=== PATIENT | male | born 1965 | race Caucasian/White ===

== ENCOUNTER → 2022-05-09 | Outpatient (CLI) | payer BC ==
[~2022-05-09] MED LIST: CYCL10 PO
[2022-05-09 08:06] LABS: BASOPHILS ABSOLUTE AUTO 0.06 K/mm3 (0.00-0.23); BASOPHILS PERCENT AUTO 1 % (0-2); EOSINOPHILS ABSOLUTE AUTO 0.17 K/mm3 (0.00-0.68); EOSINOPHILS PERCENT AUTO 2 % (0-6); Hemoglobin 15.4 g/dL (13.5-17.5); IMMATURE GRAN ABSOLUTE AUTO 0.05 K/mm3 (0.00-0.10); IMMATURE GRAN PERCENT AUTO 1 % (0-1); LYMPHOCYTES ABSOLUTE AUTO 2.37 K/mm3 (0.84-5.20); LYMPHOCYTES PERCENT AUTO 28 % (21-46); MONOCYTES ABSOLUTE AUTO 0.97 K/mm3 (0.16-1.47); MONOCYTES PERCENT AUTO 11 % (4-13); Mean Corpuscular HGB Conc 35.8 g/dL (31.5-36.5); Mean Corpuscular Volume 89 fL (80-100); NEUTROPHILS PERCENT AUTO 58 % (41-73); RDW Coefficient Variation 11.9 % (11.7-14.2); RDW Standard Deviation 38.5 fL (35.1-46.3); Red Blood Cell Count 4.82 M/mm3 (4.30-5.90); White Blood Cell Count 8.62 K/mm3 (4.00-11.30)
[2022-05-09 08:24] LABS: Albumin, Blood 4.1 g/dL (3.4-5.0); Albumin/Globulin Ratio 1.1 (0.8-1.8); Bilirubin, Total 0.6 mg/dL (0.1-1.0); Bun/Creatinine Ratio 16.3 (12.0-20.0); Calcium, Blood 9.4 mg/dL (8.5-10.1); Creatinine, Blood 0.86 mg/dL (0.60-1.20); Globulin, Blood 3.7 g/dL (2.2-4.0); Potassium, Blood 4.3 mmol/L (3.5-5.5); Thyroid Stimulating Hormone 1.712 uIU/mL (0.360-4.800); Total Protein, Blood 7.8 g/dL (6.4-8.2)
[2022-05-09 08:38] LABS: Mean Platelet Volume 10.6 fL (9.1-12.4); Platelet Count 107 K/mm3 (150-400)
== END ==
LOC: LAB SHORT 07:59 → LAB 07:59
PROVIDERS: Physician Assistant
DX: R53.83 Other fatigue (principal); I50.9 Heart failure, unspecified
CPT/HCPCS: 80053; 84443; 84484; 85025; 85379

== ENCOUNTER 2023-12-09 00:30 | Observation (INO) | payer BC ==
[~2023-12-09] VITALS: Ht 188 cm; Wt 122.1 kg
[2023-12-09] MEDS ORDERED: POTA10T (00:44)
[2023-12-09] MEDS ORDERED: OMEP20ER (00:44)
[2023-12-09] MEDS ORDERED: ZESTRIL40 M1 PO (00:44)
[2023-12-09] MEDS ORDERED: SPIR50 (00:45)
[2023-12-09] MEDS ORDERED: AMLO10 (00:46)
[2023-12-09 01:03] LABS: Hemoglobin 14.9 g/dL (13.5-17.5); Mean Corpuscular HGB 32.7 pg (26.0-34.0); Mean Corpuscular HGB Conc 35.5 g/dL (31.5-36.5); Mean Corpuscular Volume 92 fL (80-100); Mean Platelet Volume 8.9 fL (9.1-12.4); Platelet Count 252 K/mm3 (150-400); RDW Coefficient Variation 12.6 % (11.7-14.2); RDW Standard Deviation 41.4 fL (35.1-46.3); Red Blood Cell Count 4.56 M/mm3 (4.30-5.90)
[2023-12-09 01:15] LABS: Albumin, Blood 3.8 g/dL (3.4-5.0); Albumin/Globulin Ratio 1.1 (0.8-1.8); Bilirubin, Total 0.5 mg/dL (0.1-1.0); Bun/Creatinine Ratio 8.2 (12.0-20.0); Calcium, Blood 8.4 mg/dL (8.5-10.1); Creatinine, Blood 0.85 mg/dL (0.60-1.20); Globulin, Blood 3.5 g/dL (2.2-4.0); Potassium, Blood 3.7 mmol/L (3.5-5.5); Total Protein, Blood 7.3 g/dL (6.4-8.2)
[2023-12-09 01:26] LABS: BAND PERCENT MAN 2 % (0-8); BASOPHILS ABSOLUTE MAN 0.12 K/mm3 (0.00-0.23); BASOPHILS PERCENT MAN 1 % (0-2); EOSINOPHILS ABSOLUTE MAN 0.38 K/mm3 (0.00-0.68); EOSINOPHILS PERCENT MAN 3 % (0-6); LYMPHOCYTES % ATYPICAL MANUAL 2 % (0-0); LYMPHOCYTES ABSOLUTE MAN 4.95 K/mm3 (0.84-5.20); LYMPHOCYTES PERCENT MAN 37 % (21-46); MONOCYTES ABSOLUTE MAN 1.01 K/mm3 (0.16-1.47); MONOCYTES PERCENT MAN 8 % (4-13); NEUTROPHILS ABSOLUTE MAN 6.22 K/mm3 (1.96-9.15); SEG NEUTROPHILS PERCENT MAN 47 % (41-73); TOTAL CELLS COUNTED 100
[2023-12-09] MEDS ORDERED: ChlordiazePOXIDE 25 MG Cap PO PRN (03:35)
[2023-12-09] MEDS ORDERED: LORazepam 1 MG Tab PO PRN (03:35)
[2023-12-09] MEDS ORDERED: Acetaminophen 325 MG TABLET PO PRN (03:35)
[2023-12-09] MEDS ORDERED: Ondansetron 4 MG TAB PO PRN (03:40)
[2023-12-09 05:18] VITALS: BP 213/172
[2023-12-09 05:23] VITALS: BP 116/79
[2023-12-09 05:43] LABS: BASOPHILS ABSOLUTE AUTO 0.04 K/mm3 (0.00-0.23); BASOPHILS PERCENT AUTO 0 % (0-2); EOSINOPHILS ABSOLUTE AUTO 0.21 K/mm3 (0.00-0.68); EOSINOPHILS PERCENT AUTO 2 % (0-6); Hematocrit 45.7 % (37.0-53.0); IMMATURE GRAN ABSOLUTE AUTO 0.03 K/mm3 (0.00-0.10); IMMATURE GRAN PERCENT AUTO 0 % (0-1); LYMPHOCYTES PERCENT AUTO 38 % (21-46); MONOCYTES ABSOLUTE AUTO 0.73 K/mm3 (0.16-1.47); MONOCYTES PERCENT AUTO 8 % (4-13); Mean Corpuscular HGB 32.1 pg (26.0-34.0); Mean Corpuscular Volume 92 fL (80-100); Mean Platelet Volume 8.6 fL (9.1-12.4); NEUTROPHILS ABSOLUTE AUTO 4.79 K/mm3 (1.96-9.15); NEUTROPHILS PERCENT AUTO 51 % (41-73); Platelet Count 255 K/mm3 (150-400); RDW Coefficient Variation 12.8 % (11.7-14.2); RDW Standard Deviation 41.8 fL (35.1-46.3); Red Blood Cell Count 4.99 M/mm3 (4.30-5.90)
--- NOTE | 2023-12-09 06:10 | NUR ---
SHIFT SUMMARY: ASSUMED CARE OF PATIENT UPON HIS TRANSFER FROM ER AT 0500 VIA W/C. A&O X 4, PLEASANT BUT VERY TIRED. DENIES CHEST DISCOMFORT. PLACED ON TELEMETRY, AFIB 110'S WITH OCCASIONAL INCREASES TO 150'S. ORIENTED PT TO ROOM, VISITING HOURS, FALL PRECAUTIONS. IS SUPPOSED TO USE CPAP AT HOME BUT HASN'T USED IT A FEW MONTHS ACCORDING TO HIS . S/P FALL AT HOME ONE MONTH AGO; STATED HE STARTED COUGHING AND THEN PASSED OUT. SNACK GIVEN. CURRENTLY SLEEPING.
[2023-12-09 06:16] LABS: Alanine Aminotransfer (ALT/SGP 51 U/L (12-78); Alk Phos 65 U/L (50-136); Anion Gap 13 mmol/L (3-11); Aspartate Aminotrans (AST/SGOT 52 U/L (12-37); Bilirubin, Total 0.6 mg/dL (0.1-1.0); Blood Urea Nitrogen 7 mg/dL (8-24); Bun/Creatinine Ratio 7.9 (12.0-20.0); CHOL/HDL RATIO 2.4; CO2, Blood 23 mmol/L (21-32); Chloride, Blood 105 mmol/L (98-108); Cholesterol 194 mg/dL (50-200); Creatinine, Blood 0.88 mg/dL (0.60-1.20); Globulin, Blood 4.1 g/dL (2.2-4.0); Glomerular Filtration Rate 100 (60-); Glucose, Blood 100 mg/dL (70-99); HDL Cholesterol 81 mg/dL (>39); LDL/HDL RATIO 0.8; Low Density Lipoprotein Chol 65 mg/dL (0-110); Magnesium, Blood 2.3 mg/dL (1.6-2.4); Sodium, Blood 137 mmol/L (136-145); Thyroid Stimulating Hormone 0.551 uIU/mL (0.360-4.800); Total Protein, Blood 8.1 g/dL (6.4-8.2); Triglycerides 239 mg/dL (30-160); Very Low Density Lipoprot Chol 47 mg/dL (6-32)
[2023-12-09 07:24] VITALS: BP 108/76
--- NOTE | 2023-12-09 07:52 | NUR ---
CALL FROM MIGDALIA IN TELEMETRY @ 8046 STATING PATIENT TELE SUSTAINING 140s-160s. PRIMARY RN FOUND AND INFORMED.
--- NOTE | 2023-12-09 08:08 | NUR ---
CALL FROM TELEMETRY; CONTINUES TO SUSTAIN IN 140S-160S x15 MINS. UNABLE TO REACH PRIMARY RN.
--- NOTE | 2023-12-09 08:11 | NUR ---
CALL TO COVERING PROVIDER, DR. BARRIOS; HE WILL LOOK AT PT CHART AND CALL BACK WITH NEW INSTRUCTIONS.
[2023-12-09] MEDS ORDERED: Metoprolol Tartrate 1 MG/ML 5 ML VIAL IV PRN (08:20)
--- NOTE | 2023-12-09 08:21 | NUR ---
PER DR BARRIOS: ADMINISTER PO METOPROLOL, RECHECK VITAL SIGNS AND UPDATE HIM WITHIN 30 MINS.
[2023-12-09] MEDS ORDERED: NS 2,500 ML IV ONE (08:50)
[2023-12-09] MEDS ORDERED: Metoprolol Tartrate 25 MG Tab PO SCH (09:00)
[2023-12-09] MEDS ORDERED: Enoxaparin 40 MG/0.4 ML SYR SC SCH (09:00)
[2023-12-09] MEDS ORDERED: Folic Acid 1 MG in NS 50 ML IV SCH (09:00)
[2023-12-09] MEDS ORDERED: Thiamine HCl 100 MG in NS 50 ML IV SCH (09:00)
[2023-12-09] MEDS ORDERED: NS 500 ML IV SCH (09:00)
[2023-12-09] MEDS ORDERED: Apixaban 5 MG Tab PO SCH (11:04)
[2023-12-09] MEDS ORDERED: NS 1,000 ML BAG IR PRN (13:35)
[2023-12-09] MEDS ORDERED: NS 250 ML IV PRN (14:10)
[2023-12-09 15:04] VITALS: BP 152/116
--- NOTE | 2023-12-09 15:39 | NUR ---
CALL FROM DR BARRIOS REQUESTING UPDATE ON HOW TACHY PATIENT HAS BEEN. HE WILL CONNECT WITH CARDIOLOGY PRIOR TO DETERMINING IF DC IS APPROPRIATE.
[2023-12-09] MEDS ORDERED: ELIQUIS5 M2 PO (16:38)
[2023-12-09] MEDS ORDERED: METO25ER PO (16:38)
--- NOTE | 2023-12-09 16:52 | NUR ---
PT REPORTS DIARRHEA x1 YEAR WITH METOPROLOL USE. CALL TO DR BARRIOS: WILL CHANGE TO CARDIZEM.
--- NOTE | 2023-12-09 16:53 | NUR ---
IVANA FROM [facility]: NEITHER [facility] NOR [facility] ARE ON THE PATIENT'S FORMULARY. CAN GO TO [employer] WEBSITE TO APPLY FOR A MEDICAL RECORDS COORDINATOR DISCOUNT. DR BARRIOS WILL BRING IN SOME SAMPLES THAT WILL GET THE PATIENT THROUGH TO MONDAY UNTIL HE IS ABLE TO DISCUSS HIS INSURANCE WITH THE PHARMACY.
[2023-12-09] MEDS ORDERED: DILT30 PO (17:12)
--- NOTE | 2023-12-09 18:09 | NUR ---
0815 PATIENT IN AFIB RVR, HIGHEST SUSTAINED RATE UP TO 150'S. METOPROLOL 5MG IVP GIVEN AND EFFECTIVE, RATE AFTER DECREASED TO LOW 100'S, STILL IN AFIB BUT WITH BETTER RATE CONTROL.ELLIQUIS GIVEN AND EDUCATION PROVIDED ON PREVENTION OF BLOOD LOTS, PATIENT AND VERBALIZED AN UNDERSTANDING. DISCHARGE NO OTHER ISSUES IN RELATION TO HR, REMAINS IN AFIB BUT AT A CONTROLLED RATE. PIV'S REMOVED AND CATHETER TIPS INTACT. DCD APPLIED. ALL DISCHARGE INSTRUCTIONS PROVDIED AND PATIENT ADN HIS VERBALIZED AN UNDERSTANDING. WRITTEN DISCHARGE INSTRUCTIONS ALSO SENT WITH PATIENT HOME. TRANSPORTED TO HOME VIA PRIVATE VEHICLE.
== END 2023-12-09 17:35 | disposition home or self-care (01) ==
LOC: ER 00:30 → MEDS 00:31
PROVIDERS: Emergency Medicine; ADMIT Student in an Organized Health Care Education/Training Program
DX: I48.91 Unspecified atrial fibrillation (principal); I10 Essential (primary) hypertension; F10.20 Alcohol dependence, uncomplicated; E87.1 Hypo-osmolality and hyponatremia
CPT/HCPCS: 36415; 71275; 76377; 80053; 80061; 83735; 83880; 84443; 84484; 85025; 93005; 93010; 93306; 96365; 96368; 96372; 96375; 99285-25; A9270; G0378; J1650; J3411; J7040; Q9967

== ENCOUNTER 2024-07-21 22:32 | Emergency (ER) | payer BC ==
[~2024-07-21] VITALS: Ht 188 cm; Wt 129.3 kg
[~2024-07-21 22:32] MED LIST changes: +AMLO10; +DILT30 PO; +ELIQUIS5 M2 PO; +METO25ER PO; +OMEP20ER; +POTA10T; +SPIR50; +ZESTRIL40 M1 PO
[2024-07-21 23:09] LABS: BASOPHILS ABSOLUTE AUTO 0.09 K/mm3 (0.00-0.23); BASOPHILS PERCENT AUTO 1 % (0-2); EOSINOPHILS ABSOLUTE AUTO 0.33 K/mm3 (0.00-0.68); EOSINOPHILS PERCENT AUTO 3 % (0-6); Hematocrit 41.6 % (37.0-53.0); Hemoglobin 15.3 g/dL (13.5-17.5); Mean Corpuscular HGB Conc 36.8 g/dL (31.5-36.5); Mean Corpuscular Volume 87 fL (80-100); Mean Platelet Volume 8.9 fL (9.1-12.4); Platelet Count 297 K/mm3 (150-400); RDW Coefficient Variation 12.2 % (11.7-14.2); RDW Standard Deviation 38.8 fL (35.1-46.3); Red Blood Cell Count 4.78 M/mm3 (4.30-5.90); White Blood Cell Count 13.12 K/mm3 (4.00-11.30)
[2024-07-21 23:10] LABS: IMMATURE GRAN ABSOLUTE AUTO 0.07 K/mm3 (0.00-0.10); IMMATURE GRAN PERCENT AUTO 1 % (0-1); LYMPHOCYTES ABSOLUTE AUTO 5.74 K/mm3 (0.84-5.20); LYMPHOCYTES PERCENT AUTO 44 % (21-46); MONOCYTES ABSOLUTE AUTO 0.97 K/mm3 (0.16-1.47); MONOCYTES PERCENT AUTO 7 % (4-13); NEUTROPHILS ABSOLUTE AUTO 5.92 K/mm3 (1.96-9.15); NEUTROPHILS PERCENT AUTO 45 % (41-73)
[2024-07-21 23:29] LABS: Albumin, Blood 3.8 g/dL (3.4-5.0); Bilirubin, Total 0.3 mg/dL (0.1-1.0); Bun/Creatinine Ratio 10.8 (12.0-20.0); Calcium, Blood 9.1 mg/dL (8.5-10.1); Creatinine, Blood 1.3 mg/dL (0.60-1.20); Globulin, Blood 3.8 g/dL (2.2-4.0); Potassium, Blood 4.1 mmol/L (3.5-5.5); Total Protein, Blood 7.6 g/dL (6.4-8.2)
[2024-07-21 23:39] LABS: Magnesium, Blood 2.1 mg/dL (1.6-2.4)
[2024-07-21 23:48] LABS: CORONAVIRUS COVID-19 AG Negative (NEGATIVE); INFLUENZA A AG Negative (NEGATIVE); INFLUENZA B AG Negative (NEGATIVE)
[2024-07-22 00:45] VITALS: BP 131/88
== END 2024-07-22 00:55 | disposition home or self-care (01) ==
LOC: ER 22:32
PROVIDERS: Student in an Organized Health Care Education/Training Program
DX: I10 Essential (primary) hypertension (principal); I48.91 Unspecified atrial fibrillation; Z79.01 Long term (current) use of anticoagulants; Z79.899 Other long term (current) drug therapy; Z79.02 Long term (current) use of antithrombotics/antiplatelets
CPT/HCPCS: 71045; 80053; 83690; 83735; 84484; 85025; 87428-QW

== ENCOUNTER 2025-01-02 10:27 | Day surgery (SDC) | payer BC ==
[~2025-01-02] VITALS: Ht 188 cm; Wt 128.3 kg
[~2025-01-02 10:27] MED LIST changes: +Balanced Salt Epinephrine Irrigation Solution 500 mL IR SCH; +Moxifloxacin HCL 0.5 MG/0.1 ML 0.4MLSYR RIGHTEYE SCH; +NS 500 ML IV ONE; +Ondansetron 4 MG SoluTab MM PRN; +PHENYLEPHRINE\\TROPICAMIDE\\TETRACAINE OPHTHALMIC DILATING SOLN RIGHTEYE PRN; +Povidone-Iodine 450 DROP/30 ML Solution ONE; +Povidone-Iodine 450 DROP/30 ML Solution RIGHTEYE SCH; +Tetracaine HCl/Pf 0.5% Opth Soln 4 ml ONE; +Triamcinolone Inj Susp 40 MG / ML 1ML Vial INJ SCH; +Triamcinolone Inj Susp 40 MG / ML 1ML Vial ONE
--- NOTE | 2025-01-02 11:13 | NUR ---
01/02/25 1113 Zehra Daniels 1110: CARDIOLOGY NOTE FROM 12/24/24 NOTES INCREASED FREQUENCY OF AFIB EPISODES RESULTING IN CHANGES TO MEDICATIONS AND HAVING PATIENT WEAR A HEART MONITOR. TODAY PATIENT REPORTS HE IS "FEELING OKAY" AND DENIES CHEST PAIN, SOB, NAUSEA, LIGHTHEADEDNESS, OR OTHER VARIATIONS FROM HIS BASELINE.
[2025-01-02] MEDS ORDERED: NS 500 ML IV ONE (11:14)
[2025-01-02] MEDS ORDERED: SPIRONOLACTONE25 MG PO (11:15)
[2025-01-02] MEDS ORDERED: LISI20 PO (11:16)
[2025-01-02] MEDS ORDERED: [UNRECOGNIZED DRUG - CODE] PO (11:17)
[2025-01-02] MEDS ORDERED: XARELTO20 M1 PO (11:18)
[2025-01-02] MEDS ORDERED: OMEP20ER PO (11:18)
[2025-01-02] MEDS ORDERED: FentaNYL Citrate 50 MCG/ML 2 ML Injection ONE (11:45)
[2025-01-02] MEDS ORDERED: Midazolam HCl 1MG / ML 2ML Vial ONE (11:45)
[2025-01-02 12:28] VITALS: BP 116/76
== END 2025-01-02 12:39 | disposition home or self-care (01) ==
LOC: ORSCSDS 10:27
PROVIDERS: Ophthalmology
PROC: 08RJ3JZ Replacement of Right Lens with Synthetic Substitute, Percutaneous Approach (ICD-10-PCS; principal; 2025-01-02 12:00)
DX: H25.811 Combined forms of age-related cataract, right eye (principal); Z96.1 Presence of intraocular lens; I48.91 Unspecified atrial fibrillation; I10 Essential (primary) hypertension; K21.9 Gastro-esophageal reflux disease without esophagitis; E66.01 Morbid (severe) obesity due to excess calories; Z68.36 Body mass index [BMI] 36.0-36.9, adult; Z79.899 Other long term (current) drug therapy
CPT/HCPCS: J2250; J3010; J3301; J7040; V2632